=== PATIENT | female | born 2000 | race Caucasian/White ===

== ENCOUNTER → 2025-02-11 | Outpatient (CLI) | payer BC, SELFPAY ==
--- NOTE | 2025-02-11 | XR_ITS ---
Examination: Cervical spine 3 views Technique one AP lateral coned AP odontoid cervical spine 3 views Send date and time: February 11, 2025 at 0804 hours INDICATIONS: Chronic back pain beginning 10 years ago FINDINGS: Reversal normal cervical lordosis No diagnostic visualization C7 No acute fracture No significant cervical disc narrowing IMPRESSION: Recommend this patient return for swimmer's lateral cervical spine to visualize C7 vertebral body
--- NOTE | 2025-02-11 | XR_ITS ---
Examination: Lumbar spine, 5 views Technique: Lumbar spine AP, lateral, coned lateral lower lumbar spine, bilateral obliques 5 views Exam date and time: February 11, 2025 0811 hours Comparison February 08, 2022 INDICATIONS: Back pain 10 years, family history, mother ankylosing spondylitis FINDINGS: Satisfactory alignment lumbar vertebral bodies No lumbar fracture or significant lumbar disc narrowing No lumbar vertebral body fusion IMPRESSION: Negative for ankylosing spondylitis No fracture or significant arthritic change
--- NOTE | 2025-02-11 | XR_ITS ---
Examination: Thoracic spine 3 views TECHNIQUE: AP lateral coned lateral upper dorsal spine 3 views Exam date and time: February 11, 2025 0806 hours INDICATIONS: Back pain 10 years, family history mother ankylosing spondylitis FINDINGS: Upper thoracic levoscoliosis 8 degrees No thoracic fracture No thoracic vertebral body fusion No cortical bone destruction IMPRESSION: Upper thoracic levoscoliosis 8 degrees No fracture or significant arthritic change No findings diagnostic for ankylosing spondylitis
[2025-02-11 08:55] LABS: Collection Type, Urine Clean Catch
[2025-02-11 09:28] LABS: Glucose Estimated Average 103 mg/dL (80-131); Hemoglobin A1C 5.2 % Hgb (4.8-6.0)
[2025-02-11 09:29] LABS: Bacteria,Urine 1+; Bilirubin,Urine Negative (Negative); Blood,Urine Negative (Negative); Color,Urine Lt-Yellow (Lt Yel-Yel); Glucose, Urine Negative (Negative); Hyaline Casts,Urine < 1 /hpf (0-1); Ketones,Urine Negative (Negative); Leukocyte Esterase,Urine Positive (Negative); Nitrite,Urine Negative (Negative); Protein,Urine Negative (Neg - Trace); RBC,Urine 19 /hpf (0-3); Specific Gravity,Urine 1.032 (1.001-1.035); Squamous Epithelial Cell,Urine 9 /hpf (0-5); Urobilinogen,Urine Negative mg/dL (0.0-1.0); WBC,Urine 4 /hpf (0-5)
[2025-02-11 09:32] LABS: Clarity,Urine Hazy (Clear/Hazy); Culture Indicated,Urine Yes
[2025-02-11 09:35] LABS: Alanine Aminotransferase 15 U/L (10-49); Albumin, Serum 4.3 gm/dL (3.5-5.0); Albumin/Globulin Ratio 1.7 (1.2-2.2); Alkaline Phosphatase 82 U/L (46-116); Anion Gap 9 (7-16); Aspartate Amino Transferase 16 U/L (0-34); BUN/Creatinine Ratio 25 Ratio (12-20); Bilirubin,Total 0.2 mg/dL (0.3-1.2); Blood Urea Nitrogen 15 mg/dL (9-23); Calcium 8.9 mg/dL (8.3-10.6); Calcium (Corrected) 8.9 mg/dL (8.5-10.1); Carbon Dioxide 23.2 mMol/L (20.0-31.0); Cardiac Risk Estimate 3.6 RATIO (3.7-5.6); Chloride 108 mMol/L (98-107); Cholesterol 134 mg/dL (132-200); Creatinine (Component) 0.6 mg/dL (0.6-1.3); Globulin 2.5 gm/dL (2.3-3.5); Glucose 99 mg/dL (74-106); HDL Cholesterol 37 mg/dL (40-60); LDL Cholesterol,Calculated 72 mg/dL (0-130); Osmolality,Calculated 280 (275-295); Potassium 3.7 mMol/L (3.4-5.1); Sodium 140 mMol/L (136-145); Thyroid Stimulating Hormone 3.36 uIU/mL (0.55-4.78); Total Protein 6.8 gm/dL (5.7-8.2); Triglycerides 125 mg/dL (30-150); Vitamin D 25 Hydroxy Total 7.9 ng/mL (7.3-40.2); eGFR > 60 See Note
== END | disposition home or self-care (01) ==
LOC: CDIM 07:23 → COPL 08:25
PROVIDERS: PCP Family Medicine; Referring Provider Registered Nurse; Visit Provider Registered Nurse
DX: M41.84 Other forms of scoliosis, thoracic region (principal); E66.9 Obesity, unspecified; R79.89 Other specified abnormal findings of blood chemistry
CPT/HCPCS: 36415; 72040; 72070; 72110; 80053; 80061; 81001; 82306; 83036; 84443; 86038; 86160; 86225; 87077; 87086; 87186

== ENCOUNTER → 2025-04-14 | Outpatient (CLI) | payer BC, MEDICAID, SELFPAY ==
--- NOTE | 2025-04-14 15:29 | XR_ITS ---
Examination: Pelvic ultrasound, transabdominal, complete Technique: Transabdominal ultrasound of the pelvis performed using grayscale imaging Date and time of exam: April 14, 2025 1534 hours INDICATIONS: Severe pelvic cramping 2 weeks FINDINGS: Uterus 8.8 cm endometrial stripe 0.6 cm Ovaries obscured by bowel gas IMPRESSION: No uterine mass or intrauterine gestation
== END | disposition home or self-care (01) ==
PROVIDERS: PCP Registered Nurse; Referring Provider Registered Nurse; Visit Provider Registered Nurse
DX: R10.2 Pelvic and perineal pain (principal)
CPT/HCPCS: 76856